=== PATIENT | female | born 2005 | race Caucasian/White ===

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

== ENCOUNTER 2024-01-14 11:31 | Emergency (ER) | payer OTHER, SELFPAY ==
[2024-01-14] VITALS (13 sets, daily range): BP systolic 101–139; BP diastolic 56–94; PULSE 81–103; RESP 14–19; TEMP 37.6; O2SAT 98–100
--- NOTE | ~2024-01-14 | CT_ITS ---
EXAMINATION: CT soft tissue neck w con DATE: 01/14/2024 14:00 INDICATION: Tonsillitis. TECHNIQUE: Computed tomography (CT) of the neck was performed with 75 mL Omnipaque-350 intravenous co ntrast. The dose-length product was 435.75 mGy-cm. Automated exposure control and iterative reconstru ction technique were employed. COMPARISON: None FINDINGS: There is enlargement of the palatine tonsils, right greater than left, consistent with tons illitis. There are regions of low attenuation in the enlarged right tonsil consistent with phlegmonou s change, although no drainable abscess identified. There is mild reactive right cervical chain lymph nodes. Lung apices are normal. No significant vascular abnormality. Thyroid gland is unremarkable. N o significant air way compromise is seen. IMPRESSION: 1. Enlargement of the palatine tonsils, right greater than left, consistent with tonsillitis. No drai nable abscess identified. Reviewed, dictated and finalized at location A. IMPRESSION: 1. Enlargement of the palatine tonsils, right greater than left, consistent wit h tonsillitis. No drainable abscess identified.
--- NOTE | 2024-01-14 12:42 | ED.GENADULT ---
HPI - General Adult General Chief complaint: Unspecified Stated complaint: swollen tonsils, diff. breathing Time Seen by Provider: 01/14/24 11:52 History of Present Illness HPI narrative: Patient is a healthy 18-year-old female here with sore throat and difficulty swallowing. She states that about 2 days ago she began having diarrhea as well as myalgias and a sore throat. Yesterday she was seen at an out side urgent care and was diagnosed with pharyngitis, started on amoxicillin. She has taken 3 doses. Has not noted any improvement. she notes that the pain continues to worsen and she is hardly get anything by mouth due to the pain and difficulty with swallowing. She is concerned that she is dehydrated. The pain and swelling is worse on her right side than her left side and extends down into her right neck. She notes about 2 years ago during her freshman year of college she had a similar episode of pharyngitis which improved after receiving some steroids. She received no steroids at her urgent care visit yesterday. Her last menstrual cycle was last week. Related Data Allergies Allergy/AdvReac Type Severity Reaction Status Date / Time cyclobenzaprine Allergy Rash Verified 10/08/21 11:25 [From Flexeril] Review of Systems Review of Systems: All systems reviewed & are unremarkable except as noted in HPI and below PMFSH Past Medical History Medical History History of bacterial pneumonia History of kidney problems Kidney valve problem as infant outgrew Surgical History Surgical History [place] teeth removed Family History Family History Grandparent Breast cancer Cerebrovascular accident Bone cancer Other Breast cancer Diabetes mellitus Brain cancer Other No acute medical problems Social History Social History Smoking status: Never smoker Alcohol intake: never Substance use: current Substance use type: marijuana Other substance usage details: Rarely Living arrangements: with family Occupation/Education: student Gender identity (if verbalized by the patient): Female Exam Narrative: GENERAL: Tearful, appears to be in pain, spitting out her secretions into a paper towel HEAD: Normocephalic, atraumatic. EYES: PERRLA and EOMI. ENT: Nares clear. Mucous membranes dry. posterior pharyngeal erythema with trismus which limits view of right paratonsillar region. Uvula appears to be slightly left of midline however view is limited. Tenderness and swelling to the right anterior cervical region. No overlying skin changes. NECK: Supple. CHEST: Clear to auscultation. No respiratory distress. HEART: Regular rate and rhythm. Normal peripheral pulses. ABDOMEN: Soft, nontender, nondistended. EXTREMITIES: Normal range of motion. No edema. SKIN: Warm, dry, no rash. NEURO: No focal deficits. Alert and oriented x3. PSYCH: Normal mood and affect. Course Course Emergency Course: Chart review performed. Patient here with complaint of tonsillitis. Was diagnosed with tonsillitis yesterday at an outside urgent care, started on amoxicillin. Triage vitals normal. Patient seen evaluated, she is ill-appearing and spitting out some of her secretions. Concern for dehydration, differentials include pharyngitis, peritonsillar abscess, deep space infection. We will do basic labs, imaging, pain medication, a dose of IV clindamycin as well as a dose of Decadron. Patient and mom at bedside agreeable to workup and plan. Lab work and imaging reviewed. Elevated white blood cell count of 12.3. CMP grossly normal with no presence of VIVIANA. Influenza, RSV negative. Strep negative. Patient is positive for COVID-19. CT shows enlargement of the palatine tonsils right greater than left cons
[2024-01-14] MEDS: MORPHINE SULFATE (*CRX) 4 MG/ML INJ IV PUSH ×2 (13:07→15:36)
[2024-01-14] MEDS: dexAMETHasone SOD PHOS INJ 10 MG/ML 1 ML VIAL IV PUSH (13:07)
[2024-01-14] MEDS: ONDANSETRON INJ 4 MG/2 ML VIAL IV PUSH (13:08)
[2024-01-14 13:22] LABS: Basophils Percent Auto 0.3 % (0.2-1.2); Eosinophils Percent Auto 0.3 % (0-4.4); Hematocrit 38.7 % (37.0-47.0); Immature Granulocyte Absolute 0.05 K/mm3 (0.00-0.031); Immature Granulocyte Percent A 0.4 % (0-0.5); Lymphocytes Percent Auto 8.9 % (18.3-44.2); Mean Corpuscular HGB Conc 33.6 g/dl (32-36); Mean Corpuscular Hemoglobin 30.4 pg (26-34); Mean Corpuscular Volume 90.6 fl (80-100); Mean Platelet Volume 10.7 fl (7.4-10.4); Monocytes Absolute Auto 1.5 K/mm3 (0.1-0.6); Monocytes Percent Auto 12.4 % (2.6-8.5); Neutrophils Absolute Auto 9.6 K/mm3 (1.3-6.7); Neutrophils Percent Auto 77.7 % (45.5-73.1); Platelet Count Result 192 k/mm3 (150-375); Red Blood Count 4.27 M/mm3 (4.2-5.4); Red Cell Distribution Width 12.9 % (11.5-14.5); White Blood Count 12.3 K/mm3 (4.5-10.0)
[2024-01-14 13:31] LABS: Lactic Acid Reflex 1.3 mmol/L (0.7-2.0)
[2024-01-14 13:35] LABS: Alanine Aminotransferase 14 U/L (6-35); Albumin Level 4.4 g/dL (3.5-5.1); Alkaline Phosphatase 39 U/L (38-126); Anion Gap 3 mmol/L (4-12); Aspartate Amino Transferase 20 U/L (14-36); Bilirubin,Total 0.7 mg/dL (0.2-1.3); Blood Urea Nitrogen 9 mg/dL (7-17); Calcium 9.3 mg/dL (8.4-10.2); Carbon Dioxide 27 mmol/L (22-30); Chloride 107 mmol/L (98-107); Estimated CRCL calculation 91 ml/min; Estimated Glomerular Filt Rate > 60; Glucose 84 mg/dL (65-110); Sodium 137 mmol/L (137-145)
[2024-01-14 13:36] LABS: INR 1.2; Partial Thromboplastin Time 35.1 Seconds (22.3-36.8); Prothrombin Time 15.9 Seconds (11.1-14.7)
[2024-01-14 13:57] LABS: CRP 19.1 mg/dL (<1.0)
[2024-01-14] MEDS: CLINDAMYCIN 600 MG/D5W 50 ML 600 MG/50 ML PIGGYBACK 100 MG IVPB (14:03)
[2024-01-14 14:09] LABS: Appearance Urine Clear (Clear); Bacteria Urine Rare /hpf; Bilirubin Urine Negative (Negative); Blood Urine Negative (Negative); Color Urine Yellow (Yellow); Glucose Urine UA Negative (Negative); Ketones Urine Trace mg/dL (Negative); Leukocyte Esterase Ur Negative LEU/UL (Negative); Need Manual Microscopic Reviewed; Nitrate Urine Negative (Negative); Non Pathogenic Casts 0-2; Protein Urine Trace mg/dL (Negative); Specific Grav Ur 1.026 (1.001-1.035); Squamous Epithelial Cell Urine Few /hpf (Few); WBC Urine 0-5 /hpf (0-3)
[2024-01-14 14:12] LABS: Add Urine Microscopic? YES
[2024-01-14 14:16] LABS: Strep Group A RT-PCR NOT DETECTED (Negative)
[2024-01-14 14:27] LABS: Influenza A QL RT-PCR Negative (Negative); Influenza B QL RT-PCR Negative (Negative); RSV RNA, RT-PCR Negative (Negative); SARS-CoV-2 RNA PCR Positive (Negative)
[2024-01-14] MEDS: LACTATED RINGERS 1,000 ML 999 ML IV CONT (15:36)
== END 2024-01-14 17:27 | disposition home or self-care (01) ==
PROVIDERS: Emergency Provider Student in an Organized Health Care Education/Training Program; PCP Pediatrics
DX: J02.9 Acute pharyngitis, unspecified (principal); U07.1 COVID-19
CPT/HCPCS: 36415; 70491; 80053; 81001; 81025; 83605; 85025; 85610; 85730; 86140; 87040; 87637; 87651; 96361; 96365; 96375; 96376; 99284; J1100; J2270; J2405; J7120; Q9967

== ENCOUNTER 2024-09-18 10:42 | Emergency (ER) | payer OTHER, SELFPAY ==
--- NOTE | ~2024-09-18 | XR_ITS ---
EXAMINATION: XR chest 1V portable 09/18/2024 13:44 INDICATION: Flu. Dyspnea. PROCEDURE: AP portable chest COMPARISON: 08/12/2021 FINDINGS: The lungs are clear. The cardiomediastinal silhouette is within normal limits. There are no pleural effusions. There is no pneumothorax suspected. IMPRESSION: 1: NO ACUTE CARDIOPULMONARY DISEASE. Reviewed, dictated and finalized at location A. PRODUCER
[2024-09-18 10:46] VITALS: BP 84/57; PULSE 109; RESP 22; TEMP 38.7; O2SAT 100
--- OUTSIDE RECORDS SUMMARY | 2024-09-18 11:42 | XMS_ITS | Continuity of Care Document ---
Author Name [facility] Organization [facility] Care Team Providers Care Superintendent [employer] Name Role Phone [facility] Unavailable Unavailable Problems Combined list of problems from Department of Defense and Veterans Affairs facilities. It does not include entries that were removed or entered in error. Problem Status Onset Date Problem Type Date of Resolution Comments Source pneumonia Inactive Condition DoD otitis media acute suppurative left ear Inactive Condition [facility] Fever Active Condition DoD conjunctivitis acute Inactive Condition DoD otitis media acute suppurative both ears Inactive Condition [facility] viral syndrome Inactive Condition [facility] Patient Counseling: Inquiry & Counseling Active Condition DoD pharyngitis Inactive Condition DoD otitis media right ear Active Condition DoD otitis media both ears Active Condition [facility] otitis media acute allergic serous Active Condition [facility] otitis media acute suppurative with spontaneous ear drum rupture Inactive Condition resolved. Advised she may resume zyrtec if needed. Would not recommend PE tubes at this time, since this was her first otitis of the fall/winter season. Recommended a wait and see approach; mother agrees. [facility] otitis media Active Condition Patient doing well with no OM episodes since Sep. Will continue zyrtec. Patient to followup with PCM as needed.discusse d with Chirag [facility] visit for: 4-6 year visit Active Condition [facility] feared medical condition not demonstrated Active Condition No otitis. [facility] Urine Culture Mixed Julia Nonspecific Abnormal Findings Active Condition Spoke with mother and reviewed results. Child is still asymptomatic. Suspect contaminated specimen; mother acknowledges that she had difficulty cleaning her prior to specimen collection. Mother will bring her this week for repeat studies. [facility] vaginitis Active Condition [facility] cystitis acute Inactive Condition Clini kerry resolved. [facility] allergic rhinitis Active Condition Re viewed appropriate med regime and stressed importance of using nasonex-explain ed to Chanelle that this would help her ears not to feel like she had water in the . Mom has enough Zyrtec and Nasonex. [facility] otitis media nonsuppurative serous Inactive Condition Serous Effusion for Over 90 days. Did not cooperate for Audiology testing. [facility] gastroenteritis viral Active Condition DISCUSSED PO HYDRATION STRATEGIES.to ER if refuses po fluids or if can not keep up with losses.Vomiting does seem to have slowed down and diarrhe has resolved. DoD visit for: screening exam ear disorders Inactive Condition DoD visit for: ears / hearing exam Active Condition DoD visit for: ears, nose, and throat exam Inactive Condition Recurrent OM's with recent perforation DoD Preventive Medicine Established Patient Checkup Child 1-4 Years Inactive Condition [facility] upper respiratory infection Active Condition Reviewed home care; rtc if worse/not improving. DoD dermatitis of eyelid contact, allergic Active Condition [facility] Medications Combined list of outpatient medications from Department of Defense and Veterans Affairs facilities.Medications provided include 1) outpatient medications from the last 15 months, and 2) patient-reported medications. Medication Details Route Status Patient Instructions Prescription Expires Prescription Number Last Dispense Date Ordering Provider Order Date Order Qty Source AMOX TR-POTASSIU M CLAVULANATE (AMOXICILLI N/POTASSIUM CLAV), 875-125 MG, TABLET, ORAL, SANDOZ, 20 ea. BOTTLE Active [id number] 2023 20 Pharmac y Data Transac tion Service Facilit y AMOXICILLIN (AMOXICILLI N), 875MG, TABLET, ORAL, AUROBINDO PHARM, 100 ea. BOTTLE Active [id number] : 2023 20 Pharmac y Data Transac tion Service Facilit y ATOMOXETINE HCL (atomoxetin e HCl), 40 MG, CAPSULE, ORAL, CAMBER PHARMACE, 30 ea. BOTTLE Active [id number] 2023 30 Pharmac y Data Transac tion Service Facilit y CLINDAMYCIN HCL (CLINDAMYCI N HCL), 150MG, CAPSULE, ORAL, AUROBINDO PHARM, 100 ea. BOTTLE Cancele d [id number] : 2023 0 Pharmac y Data Transac tion Service Facilit y CLINDAMYCIN HCL (CLINDAMYCI N HCL), 150MG, CAPSULE, ORAL, AUROBINDO PHARM, 100 ea. BOTTLE Active [id number] 2023 120 Pharmac y Data Transac tion Service Facilit y DEXAMETHASO NE (dexamethas one), 6 MG, TABLET, ORAL, ALVOGEN INC, 100 ea. BOTTLE Active [id number] 4 2023 2 Pharmac y Data Transac tion Service Facilit y DEXAMETHASO NE (dexamethas one), 6 MG, TABLET, ORAL, NOVITIUM/AN I PH, 100 ea. BOTTLE Cancele d [id number] : 2023 0 Pharmac y Data Transac tion Service Facilit y ONDANSETRON ODT (ONDANSETRO N), 4 MG, TAB RAPDIS, ORAL, CITRON PHARMA L, 30 ea. BLIST PACK Cancele d [id number] : 2023 0 Pharmac y Data Transac tion Service Facilit y ONDANSETRON ODT (ONDANSETRO N), 4MG, TAB RAPDIS, ORAL, GLENMARK PHARMA, 30 ea. BLIST PACK Active [id number] 4 2023 14 Pharmac y Data Transac tion Service Facilit y Allergies, Adverse Reactions, Alerts Combined list of allergies from Department of Defense and Veterans Affairs facilities. It does not include entries that were removed or entered in error. Substance Category Reaction Severity Reaction type Status Date Reported Comments Source NO OUTPUT FOR NCID [id number] Drug allergy (disorder) active 04/07/2008 [facility] Immunizations Combined list of available immunizations from the Department of Defense and Veterans Affairs facilities. Immunization Series Date Given Administered By Site Reaction Lot Number CVX Code Drug Body Shop Supervisor Status Comments Source influenza virus vaccine, split virus (incl. purified surface antigen)-reti red CODE 0 2009 JASS VARELA [id number] Transcribed (TRS) complet ed influenza virus vaccine, split virus (incl. purified surface antigen)- retired CODE DoD varicella virus vaccine 2 2008 FRANCIS CIFUENTES [id number] 21 Merck (MSD) complet ed varicella virus vaccine DoD hepatitis A vaccine, pediatric/ado lescent dosage, 2 dose schedule 1 2008 FRANCIS CIFUENTES [id number] 83 Camstar Systemsine (SKB) complet ed hepatitis A vaccine, pediatric /adolesce nt dosage, 2 dose schedule DoD varicella virus vaccine 1 2007 JASSI PITT [id number] 21 Merck (MSD) compl et ed varicella virus vaccine DoD measles, mumps and rubella virus vaccine 1 2006 MELITA COLLINS V [id number] 03 Merck (MSD) compl et ed measles, mumps and rubella virus vaccine DoD poliovirus vaccine, inactivated 1 2006 MELITA COLLINS V [id number] Sanofi Pasteur (PMC) complet ed polioviru s vaccine, inactivat ed DoD diphtheria, tetanus toxoids and acellular pertu is vaccine 1 2006 MELITA COLLINS V [id number] 20 SmithKline (SKB) complet ed diphtheri a, tetanus toxoids and acellular pertussis vaccine DoD Encounters Combined list of: 1) Encounters from Department of Veterans Affairs facilities going back up to thelast 18 months. 2) Encounters from the Department of Defense facilities going back up to 280 months. Location Location Details Encounter Type Encounter Number Reason For Visit Attending Provider ADM Date DC Date Status Disposition Source [facility](Fa m Practice DF) OUTPATIENT [id number] POSS CONJUNC NIRMAL WICK 04/22 Released w/o Limitations [facility]( Fam Practic e DF) [facility](Pe diatric Cl DF) OUTPATIENT [id number] 3 YR WB RAMOTED ELKINS 05/08 Released w/o Limitations [facility]( Pediatr ic Cl DF) [facility](Pe diatric Cl DF) OUTPATIENT [id number] F/U EAR PRBS RAMOTED ELKINS 09/27 Released w/o Limitations [facility]( Pediatr ic Cl DF) [facility](Pe diatric Cl DF) OUTPATIENT [id number] med f/u RAMOTED ELKINS 10/11 Released w/o Limitations [facility]( Pediatr ic Cl DF) [facility](Pe diatric Cl DF) OUTPATIENT [id number] EAR PAIN RAMOTED ELKINS 10/16 Released w/o Limitations [facility]( Pediatr ic Cl DF) [facility](Pe diatric Cl DF) OUTPATIENT [id number] check up RAMOTED ELKINS 10/27 Released w/o Limitations [facility]( Pediatr ic Cl DF) [facility](Au diology Svc BE) OUTPATIENT [id number] visit for: ears, nose, and throat exam YUN WOODS 11/03 Released w/o Limitations [facility]( Audiolo gy Svc BE) [facility](Pe diatric Cl DF) OUTPATIENT [id number] concern s about reoccur ing ear infecti on BRIDGETTE RALPHTomas Su 12/27 Released w/o Limitations [facility]( Pediatr ic Cl DF) [facility](Pe diatric Cl DF) OUTPATIENT [id number] F/U EAR CHECK BOBBY RALPHBRENTON Su 01/17 Released w/o Limitations [facility]( Pediatr ic Cl DF) [facility](Ot olaryngol ogy [facility]) OUTPATIENT [id number] OTITIS MEDIA NONSUPP URATIVE ANAND ALMENDAREZ 03/06 Released w/o Limitations [facility]Pe [facility] Cl DF) OUTPATIENT [id number] poss bladder infecti on CIELO RAM 03/16 Released w/o Limitations [facility]( Pediatr ic Cl DF) [facility](Fa m Practice FB) TELE CONSULT [id number] Notific ation of lab results JUAREZREYES 03/18 [facility]( Fam Practic e FB) [facility](Pe diatric Cl DF) TELE CONSULT [id number] UC results CIELO RAM 03/19 [facility]( Pediatr ic Cl DF) [facility](Pe diatric Cl DF) OUTPATIENT [id number] f/u UTI CIELO RAM 04/02 Released w/o Limitations [facility]( Pediatr ic Cl DF) [facility](Pe diatric Cl DF) TELE CONSULT [id number] positiv e urine culture CIELO RAM 04/03 [facility]( Pediatr ic Cl DF) [facility](Au diology Cl WR) OUTPATIENT [id number] OTITIS MEDIA MONIKA PAL 05/08 Released w/o Limitations [facility]( Audiolo gy Cl WR) [facility](Pe diatric Cl DF) OUTPATIENT [id number] 4 year wb NICK RALPHDEANNA Su 05/24 Released w/o Limitations [facility]( Pediatr ic Cl DF) [facility] [place]) OUTPATIENT [id number] JACKELIN MEZA 06/19 Released w/o Limitations [facility](Pe diatric Cl DF) OUTPATIENT [id number] POSS EAR INFECTI ON OR RUPTURE CIELO RAM 08/23 Released w/o Limitations [facility]( Pediatr ic Cl DF) [facility](Pe diatric Cl DF) OUTPATIENT [id number] f/u rupture d ear drum, discuss poss tubes in ears CIELO RAM 09/06 Released w/o Limitations [facility]( Pediatr ic Cl DF) [facility](Pe diatric Cl DF) OUTPATIENT [id number] discuss tubes in ears RAMOTED ELKINS 09/20 Released w/o Limitations [facility]( Pediatr ic Cl DF) [facility](Pe diatric Cl DF) OUTPATIENT [id number] ear infecti on, possibl e bronchi tis STANTON MCKEON 11/11 Released w/o Limitations [facility]( Pediatr ic Cl DF) [facility](Fa m Practice DF) OUTPATIENT [id number] FEVER, POSS EAR INFECTI ON/RUPT URED EAR DRUM EDUARDO NGUYEN 12/26 Released w/o Limitations [facility]( Fam Practic e DF) [facility](Pe diatric Cl DF) OUTPATIENT [id number] ear infecti on CIELO RAM 01/22 Released w/o Limitations [facility]( Pediatr ic Cl DF) [facility](Pe diatric Cl DF) OUTPATIENT [id number] 3 yr health check-u p TED RALPH 05/01 Released w/o Limitations [facility]( Pediatr ic Cl DF) [facility](Fa m Practice DF) OUTPATIENT [id number] poss ear infecti on DAYANNA KHAN 07/22 Released w/o Limitations [facility]( Fam Practic e DF) [facility](Pe diatric Cl DF) OUTPATIENT [id number] CAIN Frazier 11/14 Released w/o Limitations [facility]( Pediatr ic Cl DF) [facility](Pe diatric Cl DF) OUTPATIENT [id number] f/u ear infecti on BRIGITTE FORTUNE 12/08 Released w/o Limitations [facility]( Pediatr ic Cl DF) [facility](Pe diatric Cl DF) OUTPATIENT [id number] f/u ears BRIGITTE FORTUNE 01/01 Released w/o Limitations [facility]( Pediatr ic Cl DF) [facility](FP Nurse Cl DF) TELE CONSULT [id number] triage- ear infecti on GIOVANNA ALVARADO 06/17 [facility]( FP Nurse Cl DF) [facility](Pe diatric Cl DF) OUTPATIENT [id number] temps poss ear inf. BRIGITTE FORTUNE 06/17 Released w/o Limitations [facility]( Pediatr ic Cl DF) [facility](Pe diatric Cl DF) OUTPATIENT [id number] Poss. ear inf/pin k eye MILLY RAMA Sariah 09/09 Released w/o Limitations [facility]( Pediatr ic Cl DF) [facility](FP Nurse Cl DF) TELE CONSULT [id number] triage- ear ache, poss ear drum rupture REYES CHANELLE 09/25 [facility]( FP Nurse Cl DF) [facility](Pe diatric Cl DF) OUTPATIENT [id number] Right ear pain s/p abx for ear infecti on BRIGITTE FORTUNE 09/25 Released w/o Limitations [facility]( Pediatr ic Cl DF) [facility](FP Nurse Cl DF) TELE CONSULT [id number] TRIAGE fever/e ar inf. GIOVANNA ALVARADO 10/19 [facility]( FP Nurse Cl DF) [facility](Pe diatric Cl DF) OUTPATIENT [id number] ear recheck and needs ent ref STANTON MCKEON 11/14 Released w/o Limitations [facility]( Pediatr ic Cl DF) [facility](Pe diatric Cl DF) OUTPATIENT [id number] fever CAIN HARRINGTON G 05/27 Released w/o Limitations [facility]( Pediatr ic Cl DF) [facility](Pe diatric Gold DF) OUTPATIENT [id number] poss ear infecti on/rosa lee from ear STANTON MCKEON 11/05 Released w/o Limitations [facility]( Pediatr ic Gold DF) [facility](Pe diatric Gold DF) OUTPATIENT [id number] Poss. ear inf. BRIGITTE FORTUNE 12/16 Released w/o Limitations [facility]) OUTPATIENT [id number] ear infecti on follow up STANTON MCKEON 01/18 Released w/o Limitations [facility]( Pediatr ic Gold DF) [facility]Pe [facility]) OUTPATIENT [id number] fever cough RAM, CIELO B 02/24 Released w/o Limitations [facility]( Pediatr ic Gold DF) [facility]) OUTPATIENT [id number] er follow up for fever,c ough,pn eumonia STANTON CMKEON 02/26 Released w/o Limitations [facility]( Pediatr ic Gold DF) Procedures Combined list of: 1) Procedures from Department of Veterans Affairs facilities going back up to thelast 18 months, not all VA non-surgical procedures are included; 2) All procedures from the Department of Defense facilities. Procedure Procedure Type Code Date Perfomer Comments Sourc e Immunization Administration By Injection, Each Additional Vaccine 12/08/2008 BRIGITTE FORTUNE [facility] Hep A Vac Ped/Adol Dosage (Intramusc Use) 2 Dose Schedule Hep A Vac Ped/Adol Dosage (Intramusc Use) 2 Dose Schedule 03525 12/08/2008 [facility] Vaccines Viral Varicella (Active) Vaccines Viral Varicella (Active) 65327 12/08/2008 [facility] Immunization Administration By Injection, One Vaccine Immunization Administration By Injection, One Vaccine 64712 12/08/2008 [facility] Vaccines Viral Varicella (Active) Vaccines Viral Varicella (Active) 12878 05/01/2008 TED RALPH [facility] DTaP Vaccine DTaP Vaccine 63875 05/24/2007 TED RALPH Vaccines Viral Measles, Mumps and Rubella, Live Vaccines Viral Measles, Mumps and Rubella, Live 99758 05/24/2007 TED RALPH Vaccines Viral Polio, Inactivated Vaccines Viral Polio, Inactivated 62001 05/24/2007 TED RALPH [facility] Audiometry Speech Threshold Audiometry Speech Threshold 06921 05/08/2007 MONIKA PAL. [facility] Tympanometry Tympanometry 41081 05/08/2007 MONIKA PAL. [facility] Threshold Audiogram (Pure Tone) Threshold Audiogram (Pure Tone) 61386 05/08/2007 MONIKA PAL. [facility] Visual Reinforcement Audiometry (VRA) Visual Reinforcement Audiometry (VRA) 67459 11/03/2006 YUN WOODS [facility] Evoked Otoacoustic Little ions Diagnostic Evaluation 11/03/2006 YUN WOODS [facility] Tympanometry Tympanometry 02691 11/03/2006 YUN WOODS [facility] INFLUENZA VIRUS VACCINE, TRIVALENT, LIVE (LAIV3), FOR INTRANASAL USE 07/05/2010 DoD IMMUNIZ ADMIN YOUNGER 8 YRS, AGE (INCL PERCUTANEOUS, I/D, SUBCUTANEOUS,/IM INJECTS) WHEN THE PHYS COUNSELS THE PT/FAMILY; EA ADDITION INJECT (1/COMBO VACC/TOXOID),/DAY (LST SEP ADDITION CD, 1 PROC) 12/08/2008 [facility] VARICELLA VIRUS VACCINE (QUINCY), LIVE, FOR SUBCUTANEOUS USE 05/01/2008 [facility] SCREENING TEST OF VISUAL ACUITY, QUANTITATIVE, BILATERAL 05/24/2007 [facility] PURE TONE AUDIOMETRY (THRESHOLD); AIR ONLY 05/08/2007 [facility] TYMPANOMETRY (IMPEDANCE TESTING) 11/03/2006 [facility] Social History Combined list of available smoking, tobacco, and other social history from Department of Defense and Veterans Affairs facilities. Social History Type Response Date Comment Sour e This section is an empty social history section. [facility]
--- OUTSIDE RECORDS SUMMARY | 2024-09-18 11:42 | XMS_ITS | Data Portability ---
Author Organization [facility] [place] Address [address] [place] [address] Care Team Providers Care Bagel Maker Name Role Phone RACHELBROOKS ANAHI Primary Care Provider Assessment No assessment recorded. Plan of Treatment Reminders Order Date Submit Date Provider Last Modified By Organization Details Last Modified Time Details Appointments None recorded. Lab test, urine [address] [facility] [place], [address], [place], [address], 10:57:21 Referral None recorded. Procedures None recorded. Surgeries None recorded. Imaging None recorded. Medication Orders Nexplanon 68 mg [facility]mal [facility] Not available 10:57:21 Patient TargetsNo targets recorded. Patient InstructionsNo instructions recorded. Reason for Referral None Reported. Results Created Date Observation Date Name Description Value Unit Range Abnormal Flag Note LastModifiedBy Organization Detail LastModifiedTime 11/16/19 23 11/15/2022 pregn willi test, urine HCG negati ve Not Available [place] [address], [place], [address], 11/15/2022 10:41:30 Result Notes None recorded. Procedures Surgical History Date Name Laterality Status Provider Name and Address Organization Details Recorded Time 11/16/19 23 Control Implant Insertion completed ROMERO Martinez- [address], [place], [address], [facility] 11/15/2022 10:57:00 extraction of wisdom tooth completed Coco Yeager [facility] 08/23/2022 14:45:29 Imaging Results None recorded. Procedure Notes None recorded. Medical Equipment None Reported. Allergies No known drug allergies Medications Name Sig Start Date Stop Date Status Note LastModified by Organization Details LastModified Time dexamethaso ne 6 mg tablet active Not Available Not Available Not Available clindamycin HCl 150 mg capsule active Not Available Not Available Not Available amoxicillin 500 mg tablet TAKE 1 TABLET BY MOUTH THREE TIMES DAILY FOR 10 DAYS 08/23 completed Not Available Not Available Not Available amoxicillin 875 mg tablet active Not Available Not Available Not Available dexamethaso ne 4 mg tablet TAKE 1 TABLET BY MOUTH DAILY FOR 3 DAYS 08/23 completed Not Available Not Available Not Available hydroxyzine HCl 25 mg tablet active Not Available Not Available Not Available ondansetron 4 mg disintegrat ing tablet active Not Available Not Available N ot Available naproxen 500 mg tablet TAKE 1 TABLET BY MOUTH TWICE DAILY FOR 10 DAYS NEEDED FOR BREAKTHRO UGH PAIN 08/23 completed Not Available Not Available Not Available amoxicillin 875 mg-potassiu m clavulanate 125 mg tablet active Not Available Not Available Not Available escitalopra m 10 mg tablet TAKE 1 TABLET BY MOUTH EVERY NIGHT AT BEDTIME 08/23 completed Not Available Not Available Not Available atomoxetine 40 mg capsule active Not Available Not Available Not Available nitrofurant oin monohydrate /macrocryst als 100 mg capsule active Not Available Not Available Not Available Tri-Lo-Spri ntec 0.18 mg/0.215 mg/0.25 mg-25 mcg tablet TAKE 1 TABLET BY MOUTH DAILY 11/15 completed Not Available Not Available Not Available Nexplanon 68 mg subdermal implant Inject 1 implant by subcutane ous route for 1 day. 2022 active Not Available Not Available Not Avai lable Blisovi Fe 09/09 (28) 1 mg-20 mcg (21)/75 mg (7) tablet TAKE 1 TABLET BY MOUTH DAILY 08/23 completed Not Available Not Available Not Available Vitals Date Recorded Body height Body mass index (BMI) Percentile per age and sex Body mass index (BMI) Body weight Systolic blood pressure Diastolic blood pressure Provider Name and Address Organization Details Last Updated DateTime 3 160.02 cm 83 % 25.7 kg/m2 35726.6 1 g 119 mm[Hg] 70 mm[Hg] [facility] 3 14:44:30 Date Recorded Body height Body mass index (BMI) Body mass index (BMI) Percentile per age and sex Body weight Systolic blood pressure Diastolic blood pressure Provider Name and Address Organization Details Last Updated DateTime 3 160.02 cm 26 kg/m2 84 % 20748.0 8 g 119 mm[Hg] 76 mm[Hg] [facility] 3 10:40:32 Social History Question Answer Notes LastModified by Organizat ion Details LastModified Time Tobacco Smoking Status Never Smoker [facility] 11/15/2022 10:41:11 What Is Your Level Of Alcohol Consumption? Occasional Information not available 08/23/2022 How Many Years Have You Consumed Alcohol? 3 Information not available 08/23/2022 Are You Blind Or Do You Have Difficulty Seeing? No Information not available 08/23/2022 What Is Your Level Of Caffeine Consumption? Moderate Information not available 08/23/2022 How Much Tobacco Do You Chew? None Information not available 08/23/2022 In The 14 Days Before Symptom Onset, Have You Had Close Contact With A Laboratory-confir med COVID-19 While That Case Was Ill? No Information not available 08/23/2022 In The 14 Days Before Symptom Onset, Have You Had Close Contact With A Person Who Is Under Investigation For COVID-19 While That Person Was Ill? No Information not available 08/23/2022 Have You Been To An Area Known To Be High Risk For COVID-19? No Information not available 08/23/2022 Are You Deaf Or Do You Have Serious Difficulty Hearing? No Information not available 08/23/2022 What Type Of Diet Are You Following? REGULAR Information not available 08/23/2022 What Is The Highest Grade Or Level Of School You Have Completed Or The Highest Degree You Have Received? 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 No Information not available 08/23/2022 Do You Use Protection During Sex? Usually Information not available 08/23/2022 Do You Use Your Seat Belt Or Car Seat Routinely? Yes Information not available 08/23/2022 Do You Have Smoke And Carbon Monoxide Detectors In Your Home? Yes Information not available 08/23/2022 How Much Tobacco Do You Smoke? No Information not available 08/23/2022 Do You Feel Stressed (tense, Restless, Nervous, Or Anxious, Or Unable To Sleep At Night)? [id number] Information not available 08/23/2022 Do You Use Any Illicit Or Recreational Drugs? No Information not available 08/23/2022 Do You Use Sunscreen Routinely? No Information not available 08/23/2022 Have You Used IV Drugs? No Information not available 08/23/2022 Sex: Unknown Functional Status Question Answer Note LastModified by Organizat ion Details LastModified Time Do you have difficulty walking or climbing stairs? No Information not available 11/15/2022 Are you able to walk? YESWOREST Information not available 08/23/2022 Are you able to care for yourself? Yes Information not available 11/15/2022 Do you have difficulty dressing or bathing? No Information not available 11/15/2022 What is your exercise level? Heavy Information not available 08/23/2022 Mental Status None recorded. Family History Relationship Description Onset Age of this Age Resolved Age Notes LastModified by Organization Details LastModified Time Maternal Aunt Malignant tumor of breast Not available 2022 14:44:36 Maternal Grandmother Depressive disorder Not available 2022 14:44:36 Mother Anxiety disorder Not available 2022 14:44:36 Mother Depressive disorder Not available 2022 14:44:36 Medical History Condition Response Anxiety Disorder Y Allergies (Food, seasonal, environmental ) Y Gynecological History Statement/Question Response Flow Moderate Date of LMP 11/13/2022 On BCP's at Conception? N N Was last menstrual period normal N STIs/STDs N HPV Vaccine Y Duration of Flow (days) 5 Current Control Method Implant Frequency of Cycle (Q days) 20 Sexually Active? Y BCPs Menses Monthly Y Age of first menstrual cycle 11 Date of Last Pap Smear Sexual Problems? N LMP Definite N Obstetrics History GPAL:G 0 P 0 0 0 0 Past Encounters Encounter ID Performer Location Encounter Start Date Encounter Closed Date Diagnosis/Indication Diagnosis SNOMED-CT Code Diagnosis ICD10 Code Diagnosis Note [id number] Shani Dupree [facility] [address] [address] 08/23/2022 14:30:09 08/23/2022 15:45:40 Contraception care management 093640567 Z30.9 Discussed all control options in great detail. Pt would like to start ocp. She is aware of the risks and benefits. She does not have any medical condition that is contraindi cated with the use of estrogen containing control. Pt will start her pills on the first monday following the start of her period. She is aware it is not effective for control the first month. She is also aware of the importance of taking at the same time every day. Encouraged use of condoms as the pill does not protect against STD's. Will return in 3 months for med check. Consent was read and signed. Pt verbalized understand ing. Today we agreed to switch back to a mono-phasi c since her moods seemed to be less effected by this group vs the triphasic she is currently on.Her insurance is very picky with what they cover; she will obtain the formulary list of covered options & either message or drop it by the office.Onc e this list is in hand we will choose a different pill for her & we will schedule a 3mos virtual med check. consent signed.STD sent via urine. Time spent in visit is a total of 30 mins with at least 50% of visit consisting of counseling and review of plan of care. [id number] Shani Dupree [facility] [address] [address] 11/15/2022 10:27:18 11/15/2022 11:01:53 Contraception care management 860980226 Z30.9 Insertion of subcutaneous contraceptive 220184312 Z30.9 Patient is here currently on her menses. She was given all the r/b/a of placement of the Nexplanon device and has signed the consent. She is fully aware of all possible side effects of the device and has decided to move forward with placement. Insertion site was cleansed with betadine and 3cc lidocaine used for anesthesia . Device was placed in the left arm per usual fashion w/o complicati on and patient instructed to f/u in one month or earlier if there are any si/sx of infection or hypersensi tivity at the insertion site Health Concerns Section Related Observation LastModified by Organization Detai ls LastModified Time None Recorded Concern Status LastModified by Organization Details LastModified Time None Recorded Advance Directives Directive None Recorded Payers Encounter Date Sequence Insurance Name Policy Number Policy Beard Covered Member ID Beard Member ID Guarantor Name 08/23/2022 1 [place] [id number] Dalton Thornton [id number] Chanelle Bhats 11/15/2022 1 [place] [id number] Daltonmay Bhats [id number] Chanelle Thornton Notes Date Note Type Note Provider Name and Address Organization Details Recorded Time 08/23/2022 text/html Chanelle is a 17yo white female here today to discuss a change in her control.She feels the one she was recently switched to (due poor period regulation) is effecting her mood in a negative way.Causing more feelings of depression in the form of sadness and low motivation.Neg suicidal ideations or thoughts of self harm. She does not have a hx of depression but +anxiety well managed at this time.No other complaints. Hx reviewd & updated. Shani Dupree, [facility] [address], [place], [address], [facility] 08/23/2022 15:06:02 11/15/2022 text/html Here today for nexplanon insertion. Shani Dupree, [facility]- [address], [place], [address], [facility] 11/15/2022 11:00:13 OBGyn Episode No OBEpisode recorded.
--- OUTSIDE RECORDS SUMMARY | 2024-09-18 11:42 | XMS_ITS ---
Author Organization [facility] Address [address] [place] [address] Care Team Providers Care Director Of Surgery Name Role Phone Unavailable Unavailable Unavailable Problems This patient has no known problems. Allergies, Adverse Reactions, Alerts This patient has no known allergies or adverse reactions.
--- OUTSIDE RECORDS SUMMARY | 2024-09-18 11:42 | XMS_ITS | Clinical Summary ---
Author Organization [facility] [place] Address [address] [place] [address] Care Team Providers Care Nuclear Radiation Engineer Name Role Phone Provider, Not On File Primary Care Provider Unav ailable Allergies No known active allergies Medications No known medications Social History Tobacco Use Types Packs/Day Years Used Date Smoking Tobacco: Never Assessed Comments No Sex and Gender Information Value Date Recorded Sex Assigned at Not on file Legal Sex Female 8:32 AM CDT Gender Identity Not on file Sexual Orientation Not on file Last Filed Vital Signs Vital Sign Reading Time Taken Comments Blood Pressure 118/80 01/04/2024 8:56 AM CDT Pulse 72 01/04/2024 8:56 AM CDT Temperature 36.4 ??C (97.6 ??F) 01/04/2024 8:56 AM CD T Respiratory Rate 18 01/04/2024 8:56 AM CDT Oxygen Saturation 98% 01/04/2024 8:56 AM CDT Inhaled Oxygen Concentration - - Weight 63.5 kg (140 lb) 01/04/2024 8:56 AM CDT Height 160 cm (5' 3 ) 01/04/2024 8:56 AM CDT Body Mass Index 24.8 01/04/2024 8:56 AM CDT Plan of Treatment Health Maintenance Due Date Last Done Comments Hepatitis C Virus (HCV) Screening 2003 Influenza Immunization (#1) 2024 10/0 03/2021, 05/20/2020, 05/13/2019 SARS-COV-2 Immunization ( season) 2024 09/06/2021, 01/26/2021, 01/05/2021 Pap Smear 2024 Respiratory Syncytial Virus (RSV) Immunization (Adult) (1 - 1-dose 75+ series) 2078 Pneumococcal Immunization Combined Aged Out 07/05/2004, 05/03/2004, 2003, Additional history exists No longer eligible based on patient's age to complete this topic TdaP Immunization Completed 12/02/2013 Human Papillomavirus (HPV) Immunization Completed 06/24/2016, 01/08/2015 Hepatitis B Immunization Completed 017, 2003, 2003, Additional history exists Meningococcal Immunization (ACWY) Completed 05/13/2019, 01/08/2015 Meningococcal B Immunization Completed 05/20/2020, 05/13/2019 Rotavirus Immunization Aged Out No lo nger eligible based on patient's age to complete this topic Insurance [facility] CLAIMS Care Teams Nuclear Radiation Engineer Relationship Specialty Start Date End Date Provider, Not On File OR PCP - General 01/04/24
--- OUTSIDE RECORDS SUMMARY | 2024-09-18 11:42 | XMS_ITS | Continuity of Care Document ---
Author Name [facility] Address [address] [place] [address] Organization [facility] Care Team Providers Care Car Pusher Name Role Phone [facility] Unavailable Problems Problem Status Onset Date Problem Type Date of Resolution Comme nts Source Anxiety (finding) Active Condition Acute pharyngitis (disorder) Diagnosis Hypertrophy of tonsils (disorder) Diagnosis Acute pharyngitis, unspecified Active Diagnosis Medications Medication Details Route Status Patient Instructions Ordering Provider Order Date Source Estradiol 1 MG Oral Tablet 1 mg = 1 Tablet(s), Oral, Daily, # 30 Tablet(s), Refill(s) 11, Pharmacy: [facility] #[id number], 162.8, cm, 08/02/23 9:47:00 SP[facility]ING, Height (cm), kg, 06/10/24 13:15:00 CDT, Weight (kg), 67.8 Active 06[facility]10/20 [facility] atomoxetine 40 MG Oral Capsule 40 mg = 1 capsule(s), Oral, qAM, # 30 capsule(s), Refill(s) 0, Pharmacy: [facility] #[id number], 162.8, cm, 08/02/23 9:47:00 SP[facility] [employer] [facility]ING, Height (cm), kg, 08/02/23 9:47:00 SP[facility] [employer] [facility]ING, Weight (kg), 69.05 Active 10/10/19 [facility] Results Order Name Results Value Reference Range Date Interpretation Comments Source IMMUNOLOGY /VIROLOGY Hep C Candi by EIA Nonreactiv e 1 *NA* (07/10/24 4:33 PM) 07/10 22:33 :00 Interpretive Data: Nonreactive: Nonreactive (negative) Reactive: Reactive (positive) Equivocal: Unable to classify reactivity, please reorder in two weeks if clinically applicable. [facility] Head and Neck (Non-Vascu lar) US Head and Neck (Non-Vascul ar) Ultrasound Accession # Exam Date/Time Procedure Ordering Provider [id number] 10/16/2023 09:50 [facility] US Head and Neck Florecita Holloway MD (Non-Vascu lar) Reason For Exam (US Head and Neck (Non-Vascu lar)) h/o thryoid nodules Report EXAMINATIO N: US Head and Neck (Non-Vascu lar) INDICATION : History of thyroid nodules COMPARISON : None TECHNIQUE: Grayscale and color doppler imaging of the thyroid gland was performed. FINDINGS: RIGHT LOBE: Length: 4.7 cm Width: 1.3 cm Height: 1.9 cm Echogenici ty: Normal. Lesions: An avascular, anechoic cyst is seen within the right superior thyroid lobe measuring up to 3 mm maximum diameter. No suspicious thyroid nodules. LEFT LOBE: Length: 4.2 cm Width: 1.1 cm Height: 1.2 cm Echogenici ty: Normal. Lesions: No nodules. ISTHMUS: Thickness AP: 0.5 cm Echogenici ty: Normal Lesions: No nodules. IMPRESSION : No suspicious thyroid nodules. I have personally reviewed the images and attest to the contents of this report. * * *Final Report* * * Electronic ally Signed by: Josie CRAMER, Ana Luisa Smith Signed on: 10/16/23 16:38 10/16 09:34 :24 [facility] GENERAL CHEMISTRY 3rd Generation TSH 2.270 mcunit/mL 0.270 - 4.200 10/09 21:02 :00 [facility] Vital Signs Vital Sign Value Date Comments Source Weight (kg) 67.8 kg 06/10/2024 18:15:00 [facility] Heart Rate 90 bpm 06/10/2024 18:15:00 [facility] SBP NIBP 130 mm[Hg] 06/10/2024 18:15:00 [facility] DBP NIBP 87 mm[Hg] 06/10/2024 18:15:00 [facility] SBP NIBP 102 mm[Hg] 04/30/2024 19:35:56 [facility] DBP NIBP 63 mm[Hg] 04/30/2024 19:35:56 [facility] [address] Mean NIBP 76 mm[Hg] 04/30/2024 19:35:56 [facility] [address] Heart Rate 65 bpm 04/30/2024 19:35:56 [facility] [address] SpO2 100 % 04/30/2024 19:35:56 [facility] [address] Temperature (Celsius) 36.9 Brandi 04/30/2024 19:35:56 [facility] [address] Respiratory Rate 17 breaths/min 04/30/2024 19:34:00 [facility] [address] SBP NIBP 109 mm[Hg] 10/09/2023 20:39:48 [facility] [address] DBP NIBP 74 mm[Hg] 10/09/2023 20:39:48 [facility] [address] Mean NIBP 86 mm[Hg] 10/09/2023 20:39:48 [facility] [address] Heart Rate 57 bpm 10/09/2023 20:39:48 [facility] [address] SpO2 97 % 10/09/2023 20:39:48 -[facility] [address] Temperature (Celsius) 37.1 Brandi 10/09/2023 20:39:48 -[facility] Road Respiratory Rate 17 breaths/min 10/09/2023 20:38:00 -[facility] Medicine [facility] Encounters Location Location Details Encounter Type Encounter Number Reason For Visit Attending Provider ADM Date DC Date Status Source [address] [facility] [id number] [facility] 10/09 20:32 :59 10/10 05:59 :59 [facility] [address] [facility] Between Visit [id number] 10/10 01:22 :31 10/10 05:59 :59 [facility] [address] [facility] FM Between Visit [id number] 10/10 02:17 :42 10/10 05:59 :59 [facility] [address] [facility] Outpatient [id number] [facility] 10/16 15:32 :03 10/17 05:59 :59 [facility] [address] FM Between Visit [id number] 10/16 23:54 :04 10/17 05:59 :59 [facility] [address] FM Between Visit [id number] 10/24 00:49 :25 10/24 05:59 :59 [facility] FM Between Visit [id number] 01/15 17:41 :02 01/16 04:59 :59 [facility] FMB FMB Clinic [id number] F/U ON TONSIL AND EAR DRUM DISCUSS REFERRAL TONSIL REMOVED? Florecita Holloway 04/30 14:28 :08 04/30 23:59 :59 Active [facility] OBGYN Between Visit [id number] 05/03 21:11 :43 05/04 04:59 :59 [facility] O[facility] O[facility] Clinic [id number] PATTERN SETTER visit - WWE/nexp donna Blake 06/10 12:36 :16 06/10 23:59 :59 Active [place] [facility] O[facility] Clinic [id number] Stormy Menjivar 06/17 19:07 :04 06/18 04:59 :59 [facility] [address] FM Between Visit [id number] 07/10 01:56 :39 07/10 05:59 :59 [facility] [address] FM Between Visit [id number] 07/10 01:58 :29 07/10 05:59 :59 [facility] [address] FM Lab Only Outpatient [id number] Florecita De Souzafield 07/10 22:07 :00 07/11 05:59 :59 [facility] [address] FM Between Visit [id number] 07/12 21:44 :25 07/13 05:59 :59 [facility] [address] FM Between Visit [id number] 09/01 18:57 :34 09/02 05:59 :59 [facility] OBP OBP Between Visit [id number] 09/06 15:06 :40 09/06 23:59 :59 Discharg ed [facility] cs and Gynecolo [facility] Clinic [facility] [id number] COLD/FLU SYMPTOMS Jahaira Martinez 09/17 09:50 :01 09/17 10:39 :00 Active [facility] Procedures Procedure Code Date Perfomer Comments Source Dale Teeth [facility] Social History Social History Date Source No data available for this section 09/02/2024 [facility] No data available for this section 07/13/2024 [facility] No data available for this section 07/11/2024 [facility] No data available for this section 07/10/2024 [facility] No data available for this section 06/18/2024 [facility] No data available for this section 06/11/2024 [facility] No data available for this section 05/04/2024 [facility] No data available for this section 05/01/2024 [facility] No data available for this section 01/17/2024 [facility] No data available for this section 10/25/2023 [facility] No data available for this section 10/17/2023 [facility] No data available for this section 10/10/2023 [facility]
[2024-09-18 11:44] VITALS: BP 107/62; PULSE 90; PULSE 93; RESP 20; TEMP 39.4; O2SAT 100
--- NOTE | 2024-09-18 12:50 | ECG_ITS ---
Test Date: 2024-09-18 13:05:31 Measurements Intervals [place] Rate: 92 P: 64 OH: 128 QRS: 61 QRSD: 106 T: 38 QT: 330 QTc: 409 Interpretive Statements SINUS RHYTHM No previous ECG available for comparison Electronically Signed On 09-18-2024 16:11:38 CAREER DEVELOPMENT CONSULTANT by Angie Welsh M.D.
[2024-09-18 13:07] VITALS: RESP 25
[2024-09-18 13:10] LABS: BEDSIDEPREGUCG Negative (Negative)
[2024-09-18] MEDS: KETOROLAC 15 MG/ML VIAL (*BKC) IV PUSH (13:16)
[2024-09-18] MEDS: SODIUM CHLORIDE 0.9% IV 2,000 ML 999 ML IV CONT (13:17)
[2024-09-18] MEDS: ONDANSETRON INJ 4 MG/2 ML VIAL IV PUSH (13:17)
[2024-09-18 13:27] LABS: Basophils Percent Auto 0.4 % (0.2-1.2); Hematocrit 39.1 % (37.0-47.0); Hemoglobin 13.2 g/dL (12.0-15.0); Immature Granulocyte Absolute 0.01 K/mm3 (0.00-0.031); Immature Granulocyte Percent A 0.2 % (0-0.5); Lymphocytes Absolute Auto 0.72 K/mm3 (0.9-3.2); Lymphocytes Percent Auto 15.1 % (18.3-44.2); Mean Corpuscular HGB Conc 33.8 g/dl (32-36); Mean Corpuscular Hemoglobin 29.7 pg (26-34); Mean Corpuscular Volume 87.9 fl (80-100); Mean Platelet Volume 11.2 fl (7.4-10.4); Monocytes Absolute Auto 0.5 K/mm3 (0.1-0.6); Monocytes Percent Auto 10.1 % (2.6-8.5); Neutrophils Absolute Auto 3.5 K/mm3 (1.3-6.7); Neutrophils Percent Auto 74.2 % (45.5-73.1); Platelet Count Result 162 k/mm3 (150-375); Red Blood Count 4.45 M/mm3 (4.2-5.4); Red Cell Distribution Width 12.5 % (11.5-14.5); White Blood Count 4.8 K/mm3 (4.5-10.0)
[2024-09-18 13:28] LABS: Add Urine Microscopic? NO; Appearance Urine Clear (Clear); Bilirubin Urine Negative (Negative); Blood Urine Negative (Negative); Color Urine Yellow (Yellow); Glucose Urine UA Negative (Negative); Ketones Urine 1+ mg/dL (Negative); Leukocyte Esterase Ur Negative LEU/UL (Negative); Nitrate Urine Negative (Negative); Protein Urine Negative (Negative); Specific Grav Ur 1.014 (1.001-1.035); Urobilinogen Urine 0.2 mg/dL (<2.0); pH Urine 7.5 (5.0-9.0)
--- OUTSIDE RECORDS SUMMARY | 2024-09-18 13:37 | XMS_ITS | Clinical Summary ---
Author Organization [facility] Address [address] [place] [address] Care Team Providers Care Latin Professor Name Role Phone Provider, Not On File [...] patient's age to complete this topic Insurance [facility] CLAIMS Care Teams Latin Professor Relationship Specialty Start Date End Date Provider, Not On File [place] PCP - General 01/04/24
--- OUTSIDE RECORDS SUMMARY | 2024-09-18 13:37 | XMS_ITS | Continuity of Care Document ---
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, Height (cm), kg, 06/10/24 13:15:00 CDT, Weight (kg), 67.8 [facility] atomox[facility] 40 MG Oral Capsule 40 mg = 1 capsule(s), Oral, qAM, # 30 capsule(s), Refill(s) 0, Pharmacy: [address] #[id number], 162.8, cm, 08/02/23 9:47:00 PRINCIPAL SECRETARY, Height (cm), kg, 08/02/23 9:47:00 PRINCIPAL SECRETARY, Weight (kg), 69.05 Active 10/10/19 [facility] Results Order Name Results Value Reference Range Date Interpretation Comments Source IMMUNOLOGY /VIROLOGY Hep C Candi by EIA Nonreactiv e 1 *NA* (07/10/24 4:33 PM) 07/10 22:33 :00 Interpretive Data: Nonreactive: Nonreactive (negative) Reactive: Reactive (positive) Equivocal: Unable to classify reactivity, please reorder in two weeks if clinically applicable. [facility] Head and Neck (Non-Vascu lar) US Head and Neck (Non-Vascul ar) Ultrasound Accession # Exam Date/Time Procedure Ordering Provider [id number] 10/16/2023 09:50 PRINCIPAL SECRETARY US Head and Neck Florecita Holloway MD [...] Signed on: 10/16/23 16:38 10/16 09:34 :24 [facility] GENERAL CHEMISTRY 3rd Generation TSH 2.270 mcunit/mL 0.270 - 4.200 10/09 21:02 :00 [facility] Vital Signs Vital Sign Value Date Comments Source Weight (kg) 67.8 kg 06/10/2024 18:15:00 [facility] Heart Rate 90 bpm 06/10/2024 18:15:00 [facility] SBP NIBP 130 mm[Hg] 06/10/2024 18:15:00 [facility] DBP NIBP 87 mm[Hg] 06/10/2024 18:15:00 [facility] SBP NIBP 102 mm[Hg] 04/30/2024 19:35:56 [facility] DBP NIBP 63 mm[Hg] 04/30/2024 19:35:56 [facility] [address] Mean NIBP 76 mm[Hg] 04/30/2024 19:35:56 [facility] [address] Heart Rate 65 bpm 04/30/2024 19:35:56 [facility] [address] SpO2 100 % 04/30/2024 19:35:56 [facility] [address] Temperature (Celsius) 36.9 Brandi 04/30/2024 19:35:56 [facility] [address] Respiratory Rate 17 breaths/min 04/30/2024 19:34:00 [facility] [address] SBP NIBP 109 mm[Hg] 10/09/2023 20:39:48 [facility] [address] DBP NIBP 74 mm[Hg] 10/09/2023 20:39:48 [facility] [address] Mean NIBP 86 mm[Hg] 10/09/2023 20:39:48 [facility] [address] Heart Rate 57 bpm 10/09/2023 20:39:48 [facility] [address] SpO2 97 % 10/09/2023 20:39:48 -[facility] [address] Temperature (Celsius) 37.1 Brandi 10/09/2023 20:39:48 -[facility] Respiratory Rate 17 breaths/min 10/09/2023 20:38:00 [facility] Encounters Location Location Details Encounter Type Encounter Number Reason For Visit Attending Provider ADM Date DC Date Status Source [address] [facility] [id number] [facility] 10/09 20:32 :59 10/10 05:59 :59 [facility] [address] [facility] Between Visit [id number] 10/10 01:22 :31 10/10 05:59 :59 [facility] [address] [facility] [address] FM Between Visit [id number] 10/10 02:17 :42 10/10 05:59 :59 [facility] [address] [facility] Outpatient [id number] [facility] 10/16 15:32 :03 10/17 05:59 :59 [facility] [address] FM Between Visit [id number] 10/16 23:54 :04 10/17 05:59 :59 [facility] [address] FM Between Visit [id number] 10/24 00:49 :25 10/24 05:59 :59 [facility] [address] FM Between Visit [id number] 01/15 17:41 :02 01/16 04:59 :59 [facility] [id number] F/U ON TONSIL AND EAR DRUM DISCUSS REFERRAL TONSIL REMOVED? 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/nexp donna Blake 06/10 12:36 :16 06/10 23:59 :59 Active [facility] [id number] Stormy Menjivar 06/17 19:07 :04 06/18 04:59 :59 [facility] [address] FM Between Visit [id number] 07/10 01:56 :39 07/10 05:59 :59 [facility] [address] FM Between Visit [id number] 07/10 01:58 :29 07/10 05:59 :59 [facility] FM Lab Only Outpatient [id number] Florecita De Souzafield 07/10 22:07 :00 07/11 05:59 :59 [facility] [address] FM Between Visit [id number] 07/12 21:44 :25 07/13 05:59 :59 [facility] [address] FM Between Visit [id number] 09/01 18:57 :34 09/02 05:59 :59 [facility] OBP OBP Between Visit [id number] 09/06 15:06 :40 09/06 23:59 :59 Discharg ed [facility] [id number] COLD/FLU SYMPTOMS Jahaira Martinez 09/17 09:50 :01 09/17 10:39 :00 Active [facility] Procedures Procedure Code Date Perfomer Comments Source [facility] Social History Social History Date Source No data available for this section 09/02/2024 [facility] No data available for this section 07/13/2024 [facility] No data available for this section 07/11/2024 [facility] No data available for this section 07/10/2024 [facility] No data available for this section 06/18/20[facility] No data available for this section 06/11/2024 [facility] No data available for this section 05/04/2024 [facility] No data available for this section 05/01/2024 [facility] No data available for this section 01/17/2024 [facility] No data available for this section 10/25/2023 [facility] No data available for this section 10/17/2023 [facility] No data available for this section 10/10/2023 [facility]
--- OUTSIDE RECORDS SUMMARY | 2024-09-18 13:37 | XMS_ITS | Continuity of Care Document ---
Author Name [facility] Organization [facility] Care Team Providers Care Platform Operations Director Name Role Phone [facility] Unavailable Unavailable Problems Combined list of problems from Department of Defense and Veterans Affairs facilities. It does not include entries that were removed or entered in error. Problem Status Onset Date Problem Type Date of Resolution Comments Source pneumonia Inactive Condition DoD otitis media acute suppurative left ear Inactive Condition [facility] Fever Active Condition DoD conjunctivitis acute Inactive Condition DoD otitis media acute suppurative both ears Inactive Condition [facility] viral syndrome Inactive Condition [facility] Patient Counseling: Inquiry & Counseling Active Condition DoD pharyngitis Inactive Condition DoD otitis media right ear Active Condition DoD otitis media both ears Active Condition [facility] otitis media acute allergic serous Active Condition [facility] otitis media acute suppurative with spontaneous ear drum rupture Inactive Condition resolved. Advised she may resume zyrtec if needed. Would not recommend PE tubes at this time, since this was her first otitis of the fall/winter season. Recommended a wait and see approach; mother agrees. [facility] otitis media Active Condition Patient doing well with no OM episodes since Sep. Will continue zyrtec. Patient to followup with PCM as needed.discusse d with Chirag [facility] visit for: 4-[address] [facility] feared medical condition not demonstrated Active Condition No otitis. [facility] Urine Culture Mixed Julia Nonspecific Abnormal Findings Active Condition Spoke with mother and reviewed results. Child is still asymptomatic. Suspect contaminated specimen; mother acknowledges that she had difficulty cleaning her prior to specimen collection. Mother will bring her this week for repeat studies. [facility] vaginitis Active Condition [facility] cystitis acute Inactive Condition Clini kerry resolved. [facility] allergic rhinitis Active Condition Re viewed appropriate med regime and stressed importance of using nasonex-explain ed to Chanelle that this would help her ears not to feel like she had water in the . Mom has enough Zyrtec and Nasonex. [facility] otitis media nonsuppurative serous Inactive Condition Serous Effusion for Over 90 days. Did not cooperate for Audiology testing. [facility] gastroenteritis viral Active Condition DISCUSSED PO HYDRATION [...] Patient Checkup Child 1-[address] [facility] upper respiratory infection Active Condition Reviewed home care; rtc if worse/not improving. DoD dermatitis of eyelid contact, allergic Active Condition [facility] Medications Combined list of outpatient medications from [...] TABLET, ORAL, SANDOZ, 20 ea. BOTTLE Active [id number] 2023 20 Pharmac y Data Transac tion Service Facilit y AMOXICILLIN (AMOXICILLI N), 875MG, TABLET, ORAL, AUROBINDO PHARM, 100 ea. BOTTLE Active [id number] 4 [id number] : 2023 20 Pharmac y Data Transac tion Service Facilit y ATOMOXETINE HCL (atomoxetin e HCl), 40 MG, CAPSULE, ORAL, CAMBER PHARMACE, 30 ea. BOTTLE Active [id number] 2023 30 Pharmac y Data Transac tion Service Facilit y CLINDAMYCIN HCL (CLINDAMYCI N HCL), 150MG, CAPSULE, ORAL, AUROBINDO PHARM, 100 ea. BOTTLE Cancele d [id number] : 2023 0 Pharmac y Data Transac tion Service Facilit y CLINDAMYCIN HCL (CLINDAMYCI N HCL), 150MG, CAPSULE, ORAL, AUROBINDO PHARM, 100 ea. BOTTLE Active [id number] 4 2023 120 Pharmac y Data Transac tion Service Facilit y DEXAMETHASO NE (dexamethas one), 6 MG, TABLET, ORAL, ALVOGEN INC, 100 ea. BOTTLE Active [id number] 2023 2 Pharmac y Data Transac tion Service Facilit y DEXAMETHASO NE (dexamethas one), 6 MG, TABLET, ORAL, NOVITIUM/AN I PH, 100 ea. BOTTLE Cancele d [id number] : 2023 0 Pharmac y Data Transac tion Service Facilit y ONDANSETRON ODT (ONDANSETRO N), 4 MG, TAB RAPDIS, ORAL, CITRON PHARMA L, 30 ea. BLIST PACK Cancele d [id number] : 2023 0 Pharmac y Data Transac tion Service Facilit y ONDANSETRON ODT (ONDANSETRO N), 4MG, TAB RAPDIS, ORAL, GLENMARK PHARMA, 30 ea. BLIST PACK Active [id number] 4 2023 14 Pharmac y Data Transac tion Service Facilit y Allergies, Adverse Reactions, Alerts Combined list of allergies from Department of Defense and Veterans Affairs facilities. It does not include entries that were removed or entered in error. Substance Category Reaction Severity Reaction type Status Date Reported Comments Source NO OUTPUT FOR NCID 120598 Drug allergy (disorder) active 04/07/2008 [facility] Immunizations Combined list of available immunizations from the Department of Defense and Veterans Affairs facilities. Immunization Series Date Given Administered By Site Reaction Lot Number CVX Code Drug Embedded Software Developer Status Comments Source influenza virus vaccine, split virus (incl. purified surface antigen)-reti red CODE 0 2009 JASS VARELA [id number] Transcribed (TRS) complet ed influenza virus vaccine, split virus (incl. purified surface antigen)- retired CODE DoD varicella virus vaccine 2 2008 FRANCIS CIFUENTES [id number] 21 Merck (MSD) complet ed varicella virus vaccine DoD hepatitis A vaccine, pediatric/ado lescent dosage, 2 dose schedule 1 2008 FRANCIS CIFUENTES [id number] 83 [employer] (SKB) complet ed hepatitis A vaccine, pediatric [...] is vaccine 1 2006 MELITA COLLINS V [id number] 20 [employer] (SKB) complet ed diphtheri [...] Disposition Source [facility](Fa m Practice DF) OUTPATIENT [id number] POSS CONJUNC NIRMAL WICK 04/22 Released w/o Limitations [facility]( Fam Practic e DF) [facility](Pe diatric Cl DF) OUTPATIENT [id number] 3 YR WB RAMOTED ELKINS 05/08 Released w/o Limitations [facility]( Pediatr ic Cl DF) [facility](Pe diatric Cl DF) OUTPATIENT [id number] F/U EAR PRBS RAMOTED ELKINS 09/27 Released w/o Limitations [facility]( Pediatr ic Cl DF) [facility](Pe diatric Cl DF) OUTPATIENT [id number] med f/u RAMOTED ELKINS 10/11 Released w/o Limitations [facility]( Pediatr ic Cl DF) [facility](Pe diatric Cl DF) OUTPATIENT [id number] EAR PAIN RAMOTED ELKINS 10/16 Released w/o Limitations [facility]( Pediatr ic Cl DF) [facility](Pe diatric Cl DF) OUTPATIENT [id number] check up RAMOTED ELKINS 10/27 Released w/o Limitations [facility]( Pediatr ic Cl DF) [facility](Au diology Svc BE) OUTPATIENT [id number] visit for: ears, nose, and throat exam YUN WOODS 11/03 Released w/o Limitations [facility]( Audiolo gy Svc BE) [facility](Pe diatric Cl DF) OUTPATIENT [id number] concern s about reoccur ing ear infecti on BRIDGETTE RALPHTomas Su 12/27 Released w/o Limitations [facility]( Pediatr ic Cl DF) [facility](Pe diatric Cl DF) OUTPATIENT [id number] F/U EAR CHECK BOBBY RALPHBRENTON Su 01/17 Released w/o Limitations [facility]( Pediatr ic Cl DF) [facility](Ot olaryngol ogy [facility]) OUTPATIENT [id number] OTITIS MEDIA NONSUPP URATIVE ANAND ALMENDAREZ 03/06 Released w/o Limitations [facility]Pe [facility] Cl DF) OUTPATIENT [id number] poss bladder infecti on CIELO RAM 03/16 Released w/o Limitations [facility]( Pediatr ic Cl DF) [facility](Fa m Practice FB) TELE CONSULT [id number] Notific ation of lab results JUAREZREYES 03/18 [facility]( Fam Practic e FB) [facility](Pe diatric Cl DF) TELE CONSULT [id number] UC results CIELO RAM 03/19 [facility]( Pediatr ic Cl DF) [facility](Pe diatric Cl DF) OUTPATIENT [id number] f/u UTI CIELO RAM 04/02 Released w/o Limitations [facility]( Pediatr ic Cl DF) [facility](Pe diatric Cl DF) TELE CONSULT [id number] positiv e urine culture CIELO RAM 04/03 [facility]( Pediatr ic Cl DF) [facility](Au diology Cl WR) OUTPATIENT [id number] OTITIS MEDIA MONIKA PAL 05/08 Released w/o Limitations [facility]( Audiolo gy Cl WR) [facility](Pe diatric Cl DF) OUTPATIENT [id number] 2 year wb NICK RALPHDEANNA Su 05/24 Released w/o Limitations [facility]( Pediatr ic Cl DF) [facility](Ot [facility]aryngol [facility]gy [facility] [place]) OUTPATIENT [id number] JACKELIN MEZA 06/19 Released w/o Limitations [facility](Pe diatric Cl DF) OUTPATIENT [id number] POSS EAR INFECTI ON OR RUPTURE CIELO RAM 08/23 Released w/o Limitations [facility]( Pediatr ic Cl DF) [facility](Pe diatric Cl DF) OUTPATIENT [id number] f/u rupture d ear drum, discuss poss tubes in ears CIELO RAM 09/06 Released w/o Limitations [facility]( Pediatr ic Cl DF) [facility](Pe diatric Cl DF) OUTPATIENT [id number] discuss tubes in ears RAMOTED ELKINS 09/20 Released w/o Limitations [facility]( Pediatr ic Cl DF) [facility](Pe diatric Cl DF) OUTPATIENT [id number] ear infecti on, possibl e bronchi tis STANTON MCKEON 11/11 Released w/o Limitations [facility]( Pediatr ic Cl DF) [facility](Fa m Practice DF) OUTPATIENT [id number] FEVER, POSS EAR INFECTI ON/RUPT URED EAR DRUM EDUARDO NGUYEN 12/26 Released w/o Limitations [facility]( Fam Practic e DF) [facility](Pe diatric Cl DF) OUTPATIENT [id number] ear infecti on CIELO RAM 01/22 Released w/o Limitations [facility]( Pediatr ic Cl DF) [facility](Pe diatric Cl DF) OUTPATIENT [id number] 3 yr health check-u p TED RALPH 05/01 Released w/o Limitations [facility]( Pediatr ic Cl DF) [facility](Fa m Practice DF) OUTPATIENT [id number] poss ear infecti on DAYANNA KHNA 07/22 Released w/o Limitations [facility]( Fam Practic e DF) [facility](Pe diatric Cl DF) OUTPATIENT [id number] CAIN Frazier 11/14 Released w/o Limitations [facility]( Pediatr ic Cl DF) [facility](Pe diatric Cl DF) OUTPATIENT [id number] f/u ear infecti on BRIGITTE FORTUNE 12/08 Released w/o Limitations [facility]( Pediatr ic Cl DF) [facility](Pe diatric Cl DF) OUTPATIENT [id number] f/u ears BRIGITTE FORTUNE 01/01 Released w/o Limitations [facility]( Pediatr ic Cl DF) [facility](FP Nurse Cl DF) TELE CONSULT [id number] triage- ear infecti on GIOVANNA ALVARADO 06/17 [facility]( FP Nurse Cl DF) [facility](Pe diatric Cl DF) OUTPATIENT [id number] temps poss ear inf. BRIGITTE FORTUNE 06/17 Released w/o Limitations [facility]( Pediatr ic Cl DF) [facility](Pe diatric Cl DF) OUTPATIENT [id number] Poss. ear inf/pin k eye MILLY RAMA Sariah 09/09 Released w/o Limitations [facility]( Pediatr ic Cl DF) [facility](FP Nurse Cl DF) TELE CONSULT [id number] triage- ear ache, poss ear drum rupture REYES CHANELLE 09/25 [facility]( FP Nurse Cl DF) [facility](Pe diatric Cl DF) OUTPATIENT [id number] Right ear pain s/p abx for ear infecti on BRIGITTE FORTUNE 09/25 Released w/o Limitations [facility]( Pediatr ic Cl DF) [facility](FP Nurse Cl DF) TELE CONSULT [id number] TRIAGE fever/e ar inf. GIOVANNA ALVARADO 10/19 [facility]( FP Nurse Cl DF) [facility](Pe diatric Cl DF) OUTPATIENT [id number] ear recheck and needs ent ref STANTON MCKEON 11/14 Released w/o Limitations [facility]( Pediatr ic Cl DF) [facility](Pe diatric Cl DF) OUTPATIENT [id number] fever CAIN HARRINGTON G 05/27 Released w/o Limitations [facility]( Pediatr ic Cl DF) [facility](Pe diatric Gold DF) OUTPATIENT [id number] poss ear infecti on/rosa lee from ear STANTON MCKEON 11/05 Released w/o Limitations [facility]( Pediatr ic Gold DF) [facility](Pe diatric Gold DF) OUTPATIENT [id number] Poss. ear inf. BRIGITTE FORTUNE 12/16 Released w/o Limitations [facility]Pe [facility] DF) OUTPATIENT [id number] ear infecti on follow up STANTON MCKEON 01/18 Released w/o Limitations [facility] Ped[facility] Gold DF) [facility]Pe [facility]ric [facility] DF) OUTPATIENT [id number] fever cough RAM, CIELO B 02/24 Released w/o Limitations [facility]( Pediatr ic Gold DF) [facility]Pe [facility]) OUTPATIENT [id number] er follow up for fever,c ough,pn eumonia STANTON MCKEON 02/26 Released w/o Limitations [facility]( Pediatr ic Gold DF) Procedures Combined list of: 1) Procedures from Department of Veterans Affairs facilities going back up to thelast 18 months, not all VA non-surgical procedures are included; 2) All procedures from the Department of Defense facilities. Procedure Procedure Type Code Date Perfomer Comments Sourc e Immunization Administration By Injection, Each Additional Vaccine 12/08/[address] [facility] Hep A Vac Ped/Adol Dosage (Intramusc Use) 2 Dose Schedule Hep A Vac Ped/Adol Dosage (Intramusc Use) 2 Dose Schedule 36879 12/08/2008 [facility] Vaccines Viral Varicella (Active) Vaccines Viral Varicella (Active) 70966 12/08/2008 [facility] Immunization Administration By Injection, One Vaccine Immunization Administration By Injection, One Vaccine 89735 12/08/2008 [facility] Vaccines Viral Varicella (Active) Vaccines Viral Varicella (Active) 72047 05/01/[address] [facility] DTaP Vaccine DTaP Vaccine 02720 05/24/2007 TED RALPH Vaccines Viral Measles, Mumps and Rubella, Live Vaccines Viral Measles, Mumps and Rubella, Live 55496 05/24/2007 TED RALPH Vaccines Viral Polio, Inactivated Vaccines Viral Polio, Inactivated 31565 05/24/[address] [facility] Audiometry Speech Threshold Audiometry Speech Threshold 81200 05/08/[address] [facility] Tympanometry Tympanometry 81542 05/08/[address] [facility] Threshold Audiogram (Pure Tone) Threshold Audiogram (Pure Tone) 31623 05/08/[address] [facility] Visual Reinforcement Audiometry (VRA) Visual Reinforcement Audiometry (VRA) 24526 11/03/[address] [facility] Evoked Otoacoustic Little ions Diagnostic Evaluation 11/03/[address] [facility] Tympanometry Tympanometry 25316 11/03/[address] [facility] INFLUENZA VIRUS VACCINE, TRIVALENT, LIVE (LAIV3), FOR INTRANASAL USE 07/05/2010 DoD IMMUNIZ ADMIN YOUNGER 8 YRS, AGE (INCL PERCUTANEOUS, I/D, SUBCUTANEOUS,/IM INJECTS) WHEN THE PHYS COUNSELS THE PT/FAMILY; EA ADDITION INJECT (1/COMBO VACC/TOXOID),/DAY (LST SEP ADDITION CD, 1 PROC) 12/08/2008 [facility] VARICELLA VIRUS VACCINE (QUINCY), LIVE, FOR SUBCUTANEOUS USE 05/01/2008 [facility] SCREENING TEST OF VISUAL ACUITY, QUANTITATIVE, BILATERAL 05/24/2007 [facility] PURE TONE AUDIOMETRY (THRESHOLD); AIR ONLY 05/08/2007 [facility] TYMPANOMETRY (IMPEDANCE TESTING) 11/03/2006 [facility] Social History Combined list of available smoking, tobacco, and other social history from Department of Defense and Veterans Affairs facilities. Social History Type Response Date Comment Sour e This section is an empty social history section. [facility]D
[2024-09-18 13:45] LABS: Alanine Aminotransferase 20 U/L (6-35); Albumin Level 4.6 g/dL (3.5-5.1); Alkaline Phosphatase 31 U/L (38-126); Anion Gap 12 mmol/L (4-12); Aspartate Amino Transferase 34 U/L (14-36); Bilirubin,Total 0.6 mg/dL (0.2-1.3); Blood Urea Nitrogen 6 mg/dL (7-17); Calcium 9.4 mg/dL (8.4-10.2); Carbon Dioxide 21 mmol/L (22-30); Chloride 103 mmol/L (98-107); Estimated CRCL calculation 93 ml/min; Estimated Glomerular Filt Rate > 60; Glucose 83 mg/dL (65-110); Potassium 4.2 mmol/L (3.4-5.0); Sodium 136 mmol/L (137-145)
--- NOTE | 2024-09-18 13:49 | ED_ITS ---
HPI - General Adult General Chief complaint: Fever Stated complaint: flu A Time Seen by Provider: 09/18/24 12:37 History of Present Illness HPI narrative: This is a 19-year-old female presenting with flu-like symptoms. She is diagnosed with yesterday. Symptoms include headaches body aches fevers and shortness of breath. She has also had nausea and vomiting. No chest pain abdominal pain or urinary symptoms. Symptoms been ongoing for 3 days. Related Data Allergies Allergy/AdvReac Type Severity Reaction Status Date / Time cyclobenzaprine (From Allergy Rash Verified 10/08/21 11:25 Flexeril) [facility] Past Medical History Medical History History of kidney problems Kidney valve problem as infant outgrew History of bacterial pneumonia Surgical History Surgical History [place] teeth removed Family History Family History Grandparent Breast cancer Cerebrovascular accident Bone cancer Other Breast cancer Diabetes mellitus Brain cancer Other No acute medical problems Social History Social History Smoking status: Never smoker Alcohol intake: never Substance use: current Substance use type: marijuana Other substance usage details: Rarely Living arrangements: with family Occupation/Education: student Gender identity (if verbalized by the patient): Female Exam 2 Narrative: APPEARANCE: Patient looks uncomfortable, she has a wet rag over forehead Head: atraumatic. EYES: EOMI, NOSE: Atraumatic NECK: Trachea midline RESPIRATORY: No increased rate of breathing clear to auscultation CARDIOVASCULAR: RRR, peripheral edema ABDOMINAL: Non-distended soft nontender MUSCULOSKELETAl: No obvious deformities NEURO: Alert. Moving 4/4 extremities SKIN:: Warm, dry. Normal color PSYCHIATRIC: Normal affect Course Vital Signs Vital signs: Vital Signs Temperature 101.6 F H 09/18/24 10:46 Pulse Rate 109 H 09/18/24 10:46 Respiratory Rate 22 H 09/18/24 10:46 Blood Pressure 84/57 L 09/18/24 10:46 Pulse Oximetry 100 09/18/24 10:46 Oxygen Delivery Room Air 09/18/24 10:46 Temperature 100.3 F H 09/18/24 14:33 Pulse Rate 95 09/18/24 14:33 Respiratory Rate 20 09/18/24 14:33 Blood Pressure 93/50 L 09/18/24 14:33 Pulse Oximetry 99 09/18/24 14:33 Oxygen Delivery Room Air 09/18/24 11:44 Medical Decision Making MDM Narrative Medical decision making narrative: -Course: 19-year-old female with flu symptoms. Diagnosed with flu yesterday. Given fluids and Toradol and Zofran improvement. Laboratory studies within limits. Chest x-ray pneumonia. On re-evaluation patient is resting in bed. She was educated on expected course of illness. discharged w/ return precautions. -DDX includes but is not limited to: COVID flu RSV pneumonia Vital Signs Vital Signs: Vital Signs Temperature 101.6 F H 09/18/24 10:46 Pulse Rate 109 H 09/18/24 10:46 Respiratory Rate 22 H 09/18/24 10:46 Blood Pressure 84/57 L 09/18/24 10:46 Pulse Oximetry 100 09/18/24 10:46 Oxygen Delivery Room Air 09/18/24 10:46 Temperature 100.3 F H 09/18/24 14:33 Pulse Rate 95 09/18/24 14:33 Respiratory Rate 20 09/18/24 14:33 Blood Pressure 93/50 L 09/18/24 14:33 Pulse Oximetry 99 09/18/24 14:33 Oxygen Delivery Room Air 09/18/24 11:44 Lab Data 09/18/24 13:19 09/18/24 13:19 Labs: Lab Results 09/18/24 09/18/24 Range/Units 13:07 13:19 WBC 4.8 (4.5-10.0) K/mm3 RBC 4.45 (4.2-5.4) M/mm3 Hgb 13.2 (12.0-15.0) g/dL Hct 39.1 (37.0-47.0) % MCV 87.9 (80-100) fl MCH 29.7 (26-34) pg MCHC 33.8 (32-36) g/dl RDW 12.5 (11.5-14.5) % Plt Count 162 (150-375) k/mm3 MPV 11.2 H (7.4-10.4) fl Immature Gran % (Auto) 0.2 (0-0.5) % Neut % (Auto) 74.2 H (45.5-73.1) % Lymph % (Auto) 15.1 L (18.3-44.2) % [place] % (Auto) 10.1 H (2.6-8.5) % Eos % (Auto) 0.0 (0-4.4) % Baso % (Auto) 0.4 (0.2-1.2) % Lymph # (Auto) 0.72 L (0.9-3.2) K/mm3 [place] # (Auto) 0.5 (0.1-0.6) K/mm3 Eos # (Auto) 0.0 (0-0.3) K/mm3 Baso # (Auto) 0.0 (0.0-0.1) K/mm3 Abs Immat Gran (auto) 0.01 (0.00-0.031) K/mm3 Absolute Neuts (auto) 3.5 (1.3-6.7) K/mm3 Absolute Nucleated RBC 0.000 (0.0-0.012) K/mm3 Nucleated RBC % 0.0 (0.0-0.2) % Sodium 136 L (137-145) mmol/L Potassium 4.2 (3.4-5.0) mmol/L Chloride 103 (98-107) mmol/L Carbon Dioxide 21 L (22-30) mmol/L Anion Gap 12 (4-12) mmol/L BUN 6 L (7-17) mg/dL Creatinine 0.78 (0.7-1.0) mg/dL Estim Creat Clear Calc 93 ml/min Estimated GFR > 60 (59 - ) Glucose 83 (65-110) mg/dL Calcium 9.4 (8.4-10.2) mg/dL Total Bilirubin 0.6 (0.2-1.3) mg/dL AST 34 (14-36) U/L ALT 20 (6-35) U/L Alkaline Phosphatase 31 L (38-126) U/L Total Protein 8.0 (6.3-8.2) g/dL Albumin 4.6 (3.5-5.1) g/dL Urine Color Yellow (Yellow) Urine Appearance Clear (Clear) Urine pH 7.5 (5.0-9.0) Ur Specific [place] 1.014 (1.001-1.035) Urine Protein Negative (Negative) mg/dL Urine Glucose (UA) Negative (Negative) mg/dL Urine Ketones 1+ H (Negative) mg/dL Ur Blood (Man) Negative (Negative) Urine Nitrate Negative (Negative) Urine Bilirubin Negative (Negative) Urine Urobilinogen 0.2 (<2.0) mg/dL Leukocyte Esterase Rfl Negative (Negative) SARAHI/UL POC Urine HCG, Qual Negative (Negative) Discharge Plan Discharge Clinical Impression: Flu Patient Disposition: Home, Self-Care Condition: Stable Instructions: Antibiotic Form, Influenza (ED) Additional Instructions: Use Motrin Tylenol for fevers. Use Zofran for nausea. Drink plenty of fluids. If her symptoms any worse please return to the ED for re-evaluation. Patient Language: [place]an Prescriptions: New acetaminophen 500 mg tablet 1,000 mg PO TID PRN (Reason: shahbaz) 7 Days Qty: 42 0RF ondansetron 4 mg tablet,disintegrating 4 mg PO Q8H PRN (Reason: nausea and vomiting) Qty: 30 0RF No Action ondansetron 4 mg tablet,disintegrating 4 mg PO Q6H PRN (Reason: nausea and vomiting) Qty: 14 0RF clindamycin HCl 150 mg capsule 450 mg PO Q6H 10 Days Qty: 120 0RF dexamethasone 6 mg tablet 12 mg PO ONCE 1 Days Qty: 2 0RF norgestimate-ethinyl estradiol [Nuy-Vw-Bezpbbsd] 0.18/0.215/0.25 mg-25 mcg tablet See Rx Instructions .ROUTE .COMPLEX Qty: 84 0RF Dose Instruction: TAKE 1 TABLET BY MOUTH DAILY Rx Instructions: TAKE 1 TABLET BY MOUTH DAILY Follow-up/Referrals: UNKNOWN,DOCTOR [Primary Care Provider] -
[2024-09-18] MEDS: ACETAMINOPHEN 500 MG TABLET 1000 MG PO (14:30)
[2024-09-18 14:33] VITALS: BP 93/50; PULSE 95; RESP 20; TEMP 37.9; O2SAT 99
[2024-09-18 15:48] VITALS: BP 102/53; PULSE 96; RESP 20; TEMP 37.1; O2SAT 96
== END 2024-09-18 15:55 | disposition home or self-care (01) ==
PROVIDERS: Emergency Provider Emergency Medicine
DX: J10.1 Influenza due to other identified influenza virus with other respiratory manifestations (principal); Z87.01 Personal history of pneumonia (recurrent)
CPT/HCPCS: 36415; 71045; 80053; 81003; 81025; 85025; 93005; 96361; 96374; 96375; 99284; A9270; J1885; J2405; J7030

== ENCOUNTER 2025-03-08 10:31 | Emergency (ER) | payer OTHER, SELFPAY ==
[2025-03-08 10:46] VITALS: BP 108/85; PULSE 102; RESP 16; TEMP 37.1; O2SAT 100
[2025-03-08 11:02] LABS: EDSTREPNEGPOS1 Negative (Negative)
--- NOTE | 2025-03-08 11:27 | ED.URI ---
HPI - URI/Sore Throat General Chief Complaint: Upper Respiratory Infection Stated Complaint: Ear/Jaw Pain/ Fatigue Time Seen by Provider: 03/08/25 11:14 Source: patient, family (Mother) and RN notes reviewed Mode of arrival: ambulatory Limitations: no limitations History of Present Illness HPI Narrative: Patient presents today with a 2 day history of fatigue, right ear pressure, and pain to the right neck. She currently rates her discomfort 6/10 and has been taking Tylenol with mild relief. Denies fever, cough, congestion, rhinorrhea, shortness of breath, difficulty swallowing. History of Crohn's disease for which she takes mesalamine Related Data Home Medications ?Medication ?Instructions ?Recorded ?Confirmed ?Last Taken ?Type mesalamine 1.2 gram tablet,delayed g PO 03/08/25 Unknown History release Allergies Allergy/AdvReac Type Severity Reaction Status Date / Time cyclobenzaprine (From Allergy Rash Verified 10/08/21 11:25 Flexeril) PMF[facility] Past Medical History Medical History History of kidney problems Kidney valve problem as outgrew History of bacterial pneumonia Surgical History Surgical History [place] teeth removed Family History Family History Grandparent Breast cancer Cerebrovascular accident Bone cancer Other Breast cancer Diabetes mellitus Brain cancer Other No acute medical problems Social History Social History Smoking status: Never smoker Alcohol intake: never Substance use: current Substance use type: marijuana Other substance usage details: Rarely Living arrangements: with family Occupation/Education: student Gender identity (if verbalized by the patient): Female Comments At time of signature, I have reviewed and agree with nursing past medical, surgical, social and family history unless otherwise noted. Please see nursing chart for further information. There is no relevant family history pertinent to the presenting complaint Exam Narrative: GENERAL: Well-appearing, well-nourished, and in no acute distress. HEAD: Normocephalic, atraumatic. EYES: EOMI. No redness or drainage. Conjunctivae normal. ENT: Mucous membranes pink and moist. Nares clear. No rhinorrhea. TMs normal bilaterally. Ear canals normal bilaterally. No movement or tragal tenderness. Throat normal. Uvula midline. Mild tenderness to the right tonsillar lymph node. Mild tenderness to the right lower jaw line without obvious swelling or erythema. No tenderness to the teeth. NECK: Normal AROM. Supple. No lymphadenopathy. No obvious neck swelling or redness. CHEST: No respiratory distress. Clear to auscultation. HEART: Regular rate and rhythm. No murmur appreciated. EXTREMITIES: Normal range of motion. No edema. SKIN: Warm, dry, no rash. Capillary refill normal. Normal skin turgor. NEURO: No focal deficits. Alert and oriented x3. Gait steady. PSYCH: Normal affect. No signs of depression or anxiety. Course Course Level of Care: Express Care Visit Vital Signs Vital signs: Vital Signs Temperature 98.8 F 03/08/25 10:46 Pulse Rate 102 H 03/08/25 10:46 Respiratory Rate 16 03/08/25 10:46 Blood Pressure 108/85 03/08/25 10:46 Pulse Oximetry 100 03/08/25 10:46 Temperature 98.8 F 03/08/25 10:46 Pulse Rate 102 H 03/08/25 10:46 Respiratory Rate 16 03/08/25 10:46 Blood Pressure 108/85 03/08/25 10:46 Pulse Oximetry 100 03/08/25 10:46 Reviewed MDM - URI/Sore Throat MDM Narrative Medical decision making narrative: 19-year-old female patient with fatigue, right ear pressure, pain to the right neck area. Upon exam there is tenderness to right lower jaw line and right tonsillar lymph node. Throat exam negative. Patient has no gross swelling or redness of the jaw line or neck. Tylenol provide some mild relief. No exam findings that would warrant a transfer to the emergency department at this time. POC mono and rapid strep screen negative. Strep culture pending. Diagnosis lymphadenitis vs dental infection vs early sialodenitis. Prescription for Augementin sent to pharmacy. Patient and mother agree with plan. Anticipatory guidance given. Strict ED precautions given. Differential Diagnosis Differential diagnosis: Likely upper respiratory infection, otitis media, viral infection, pharyngitis and other (Strep throat, mononucleosis sialodenitis, dental abscess, gingivitis.) Lab Data Attestation: I reviewed the patient's lab results. Labs: Lab Results 03/08/25 03/08/25 Range/Units 11:00 11:37 POC Monoscreen Negative (Negative) POC Grp A Strep Screen Negative (Negative) Critical Care Time Critical Care Time Critical Care Time: No Discharge Plan Discharge Clinical Impression: Tonsillar lymphadenitis, Mandibular pain Patient Disposition: Home Condition: Stable Instructions: Antibiotic Form Additional Instructions: Your rapid strep and mono test are negative today. Please take the Augmentin as prescribed. Continue Tylenol for pain if needed. As discussed, if symptoms significantly worsen including significant swelling of the face, shortness of breath, difficulty swallowing, please go to the ER immediately for further evaluation. Patient Language: Urdu Prescriptions: New amoxicillin-pot clavulanate 875-125 mg tablet 1 tablet PO Q12H 10 Days Qty: 20 0RF No Action mesalamine 1.2 gram tablet,delayed release (DR/EC) PO norgestimate-ethinyl estradiol [Uub-Io-Luvnubdv] 0.18/0.215/0.25 mg-25 mcg tablet See Rx Instructions .ROUTE .COMPLEX Qty: 84 0RF Dose Instruction: TAKE 1 TABLET BY MOUTH DAILY Rx Instructions: TAKE 1 TABLET BY MOUTH DAILY Follow-up/Referrals: PHYSICIAN,PARAPROFESSIONAL INTERPRETER [Primary Care Provider] - Time of Disposition: 11:57
[2025-03-08 11:39] LABS: EDMONONEGPOS Negative (Negative)
== END 2025-03-08 12:00 | disposition home or self-care (01) ==
PROVIDERS: Emergency Provider Nurse Practitioner
DX: I88.8 Other nonspecific lymphadenitis (principal); R68.84 Jaw pain
CPT/HCPCS: 36416; 86308; 87081; 87880; 99213; G0463

== ENCOUNTER 2025-07-31 17:08 | Emergency (ER) | payer OTHER, SELFPAY ==
--- NOTE | 2025-07-31 17:14 | ED_ITS ---
HPI - URI/Sore Throat General Chief Complaint: Upper Respiratory Infection Stated Complaint: Sinus Infection Symptoms Time Seen by Provider: 07/31/25 17:14 Source: patient Mode of arrival: ambulatory Limitations: no limitations History of Present Illness HPI Narrative: Chanelle is a 20-year-old female patient presenting to the clinic today with complaints of runny nose, cough, nasal drainage, sore throat, and low-grade temperature. She reports symptoms started 2 days ago. Has taken some allergy medicine for her symptoms without relief. Denies any chest pain or shortness of breath. Feels as though there is drainage going in the back of her throat. Temperature as high as 99.5? F. elicited complaint: sore throat and nasal congestion Related Data Home Medications ?Medication ?Instructions ?Recorded ?Confirmed ?Last Taken ?Type mesalamine 1.2 gram tablet,delayed g PO 03/08/25 Unkn own History release etonogestrel 68 mg subdermal 1 implant subdermal ONCE 07/31/25 07/31/25 Unknown History implant (Nexplanon) Allergies Allergy/AdvReac Type Severity Reaction Status Date / Time cyclobenzaprine (From Allergy Rash Verified 07/31/25 17:24 Flexeril) Review of Systems Review of Systems: Pertinent positives per HPI. Patient denies any fever, chills, rash, headache, visual changes, dizziness, shortness of breath, chest pain, palpitations, nausea, vomiting, diarrhea, constipation, abdominal pain, or any urinary issues. [facility] Past Medical History Medical History History of kidney problems Kidney valve problem as infant outgrew History of bacterial pneumonia Surgical History Surgical History [place] teeth removed Family History Family History Grandparent Breast cancer Cerebrovascular accident Bone cancer Other Breast cancer Diabetes mellitus Brain cancer Other No acute medical problems Social History Social History Smoking status: Never smoker Alcohol intake: never Substance use: current Substance use type: marijuana Other substance usage details: Rarely Living arrangements: with family Occupation/Education: student Gender identity (if verbalized by the patient): Female Comments At the time of my signature, I reviewed and agree with the nursing past medical, surgical, social, and family history. There is no relevant family history pertinent to the patient complaint. Exam Narrative: General: Well-developed, well nourished, in no apparent distress Head: Normocephalic, atraumatic Eyes: Pupils equally round and reactive to light bilaterally, EOM intact, sclera and conjunctive clear, no discharge, lids normal Ears: TMs intact and clear, ear canals clear, no drainage, grossly hearing normal. Nose: Nares patent, clear nasal discharge, mild inflammation, no sinus tenderness. Mouth: Oral pharynx red without lesions or masses, good dentition, MMM. Postnasal drip Neck: Supple, trachea midline, enlargement of anterior cervical nodes, no thyroid masses or goiter palpable. Cardio: Regular rate and rhythm, s1 and s2 normal, no murmur appreciated. Resp: Clear to auscultation bilaterally, no rhonchi, rales, wheezing or rubs Course Course Level of Care: Express Care Visit Vital Signs Vital signs: Vital Signs Temperature 36.8 C 07/31/25 17:20 Pulse Rate 73 07/31/25 17:20 Respiratory Rate 16 07/31/25 17:20 Blood Pressure 134/77 07/31/25 17:20 Pulse Oximetry 100 07/31/25 17:20 Temperature 36.8 C 07/31/25 17:20 Pulse Rate 73 07/31/25 17:20 Respiratory Rate 16 07/31/25 17:20 Blood Pressure 134/77 07/31/25 17:20 Pulse Oximetry 100 07/31/25 17:20 [facility] MDM Narrative Medical decision making narrative: At the time of visit patient is resting comfortably on the exam table. Patient appears to be nontoxic. Complaints of runny nose, cough, nasal drainage, sore throat, and low-grade temperature. She reports symptoms started 2 days ago. Has taken some allergy medicine for her symptoms without relief. Denies any chest pain or shortness of breath. Feels as though there is drainage going in the back of her throat. Temperature as high as 99.5? F. on exam patient has bilateral TMs intact and clear, clear nasal drainage, mild anterior turbinate inflammation, oral pharynx red with postnasal drip, anterior cervical lymph nodes enlargement, lung sounds are clear, heart rates regular rate and rhythm. COVID, flu, and strep test were ordered. Labs: Strep, COVID, influenza testing was performed. All testing was negative in the clinic today. We will send strep for culture. Plan: I suspect patient has URI/pharyngitis/viral syndrome. Supportive measures were discussed with the patient and they voiced understanding discharge instructions and agrees to treatment plan. Return precautions reviewed Differential Diagnosis Differential Diagnosis: Differential diagnostic considerations for upper respiratory infection include upper respiratory infection, croup, otitis media, sinusitis, viral infection, bronchitis, influenza, pharyngitis, strep, uvulitis. Lab Data Labs: Lab Results 07/31/25 Range/Units 17:27 POC Grp A Strep Screen Negative (Negative) Discharge Plan Discharge Clinical Impression: Viral infection Upper respiratory infection Qualifiers: URI type: unspecified URI Qualified Code(s): J06.9 - Acute upper respiratory infection, unspecified Pharyngitis Qualifiers: Pharyngitis/tonsillitis etiology: unspecified etiology Qualified Code(s): J02.9 - Acute pharyngitis, unspecified Patient Disposition: Home Condition: Stable Instructions: Antibiotic Form, Pharyngitis (ED), Viral Syndrome (ED), Cold Symptoms (ED) Additional Instructions: COVID, flu, and strep test were all negative in the clinic today. We will send strep for culture if this comes back positive we will contact him place you on antibiotics at that time. May take DayQuil/NyQuil for cold/flu symptoms. Increase fluids and stay well hydrated May take Tylenol or motrin as directed on bottle for pain/fever May use Flonase 1 spray in each nare daily May take OTC antihistamines such as Zyrtec or Claritin daily as directed on bottle May apply Vicks vapor rub to chest to open sinuses Sinus rinses for congestion Cepacol spray, cough drops, throat lozenges, warm tea with honey/lemon, gargle salt water to soothe throat BRAT diet for diarrhea Clear liquids x 24 hours then advance as tolerated for nausea/vomiting Go to the ED if you develop a worsening in your condition- high fever not controlled by Tylenol or Motrin, dehydration, weakness, lethargy, shortness of breath, or chest pain. Follow up with your PCP in 3-5 days if symptoms persist. Patient Language: [place]i Prescriptions: No Action mesalamine 1.2 gram tablet,delayed release (DR/EC) PO Nexplanon 68 mg implant 1 implant subdermal ONCE Rx Instructions: as a single dose norgestimate-ethinyl estradiol [Cqv-Ab-Isrsbhbi] 0.18/0.215/0.25 mg-25 mcg tablet See Rx Instructions .ROUTE .COMPLEX Qty: 84 0RF Dose Instruction: TAKE 1 TABLET BY MOUTH DAILY Rx Instructions: TAKE 1 TABLET BY MOUTH DAILY Follow-up/Referrals: PHYSICIAN,BINDER CASER [Primary Care Provider, Internal Medicine] Time of Disposition: 17:33 Quality NIHSS Nursing Documentation ED NIHSS nursing documentation: reviewed/agree
[2025-07-31 17:20] VITALS: BP 134/77; PULSE 73; RESP 16; TEMP 36.8; O2SAT 100
[2025-07-31 17:28] LABS: EDSTREPNEGPOS1 Negative (Negative)
[2025-07-31 17:35] LABS: EDCOVIDSCREEN Negative (Negative); EDINFLUASCREEN Negative (Negative); EDINFLUBSCREEN Negative (Negative)
== END 2025-07-31 17:37 | disposition home or self-care (01) ==
PROVIDERS: Emergency Provider Nurse Practitioner Family
DX: B34.9 Viral infection, unspecified (principal); J06.9 Acute upper respiratory infection, unspecified; J02.9 Acute pharyngitis, unspecified; Z20.822 Contact with and (suspected) exposure to COVID-19
CPT/HCPCS: 87081; 87426; 87804; 87880; 99213; G0463